=== PATIENT | female | born 1940 | race Two or more races ===

== ENCOUNTER 2020-09-16 18:49 | Emergency (ER) | payer MEDICARE, MEDICAID ==
[~2020-09-16] VITALS: Ht 162.6 cm; Wt 58.1 kg
--- NOTE | 2020-09-16 18:49 | NUR ---
PT [id number] C/O L ANKLE PAIN S/P GLF WHILE WALKING IN THE PARK. PT IS AAOX4, NOT IN RESPIRATORY DISTRESS, V/S STABLE, KEPT RESTED AND COMFORTABLE. WILL CONTINUE TO MONITOR.
--- NOTE | 2020-09-16 19:06 | NUR ---
DR. PORRAS AT BEDSIDE FOR EVAL.
[2020-09-16] MEDS ORDERED: ONDANSETRON 4 MG TAB.RAPDIS ONE (19:12)
[2020-09-16] MEDS ORDERED: HYDROCODONE/APAP 5/325MG TABLET ONE (19:12)
[2020-09-16] MEDS ORDERED: ONDANSETRON 4 MG TAB.RAPDIS SL ONE (19:30)
[2020-09-16] MEDS ORDERED: HYDROCODONE/APAP 5/325MG TABLET PO ONE (19:30)
[2020-09-16] MEDS ORDERED: IBUP-1955 PO (19:43)
--- NOTE | 2020-09-16 19:44 | NUR ---
EMT AT BEDSIDE FOR MAINE
--- NOTE | 2020-09-16 20:22 | NUR ---
Patient discharged to home in stable condition. Written and verbal after care instructions given. Patient verbalizes understanding of instruction and RX. Explained to family.
[2020-09-16 20:23] VITALS: BP 138/79
== END 2020-09-16 20:33 | disposition home or self-care (01) ==
LOC: ER 19:00
DX: S82.892A Other fracture of left lower leg, initial encounter for closed fracture (principal); X58.XXXA Exposure to other specified factors, initial encounter; Y93.01 Activity, walking, marching and hiking; Y92.89 Other specified places as the place of occurrence of the external cause; Y99.8 Other external cause status
CPT/HCPCS: 29515; 73610; 99283; Q0162